=== PATIENT | female | born 1945 | race African-American/Black ===

== ENCOUNTER 2019-11-28 11:54 | Outpatient (CLI) | payer MEDICARE, OTHER, SELFPAY ==
[2019-11-28 12:27] LABS: Alanine Aminotransferase 25 U/L (4-35); Albumin Level 4.3 g/dL (3.5-5.1); Alkaline Phosphatase 82 U/L (38-126); Anion Gap 7 mmol/L (8-16); Aspartate Amino Transferase 39 U/L (14-36); Bilirubin,Total 0.7 mg/dL (0.2-1.3); Blood Urea Nitrogen 17 mg/dL (7-17); Calcium 9.6 mg/dL (8.4-10.2); Carbon Dioxide 32 mmol/L (22-30); Chloride 97 mmol/L (98-107); Cholesterol 209 mg/dL (0-200); Estimated Glomerular Filt Rate > 60; Glucose 91 mg/dL (65-105); HDL Direct 76 mg/dL; Potassium 3.1 mmol/L (3.4-5.0); Sodium 136 mmol/L (137-145); Triglycerides 96 mg/dL (<150)
[2019-11-28 12:38] LABS: LDL Cholesterol Direct 97 mg/dL
[2019-11-28 12:52] LABS: Basophils Absolute Auto 0.1 K/mm3 (0.0-0.1); Basophils Percent Auto 1.2 % (0.2-1.2); Eosinophils Absolute Auto 0.4 K/mm3 (0-0.3); Eosinophils Percent Auto 8.4 % (0-4.4); Hematocrit 37.1 % (37.0-47.0); Hemoglobin 12.7 g/dL (12.0-15.0); Immature Granulocyte Absolute 0.01 K/mm3 (0.00-0.031); Immature Granulocyte Percent A 0.2 % (0-0.5); Lymphocytes Absolute Auto 1.83 K/mm3 (0.9-3.2); Lymphocytes Percent Auto 43.8 % (18.3-44.2); Mean Corpuscular HGB Conc 34.2 g/dl (32-36); Mean Corpuscular Hemoglobin 32.2 pg (26-34); Mean Corpuscular Volume 93.9 fl (80-100); Mean Platelet Volume 10.2 fl (7.4-10.4); Monocytes Absolute Auto 0.5 K/mm3 (0.1-0.6); Monocytes Percent Auto 11.2 % (2.6-8.5); Neutrophils Absolute Auto 1.5 K/mm3 (1.3-6.7); Neutrophils Percent Auto 35.2 % (45.5-73.1); Platelet Count Result 222 k/mm3 (150-375); Red Blood Count 3.95 M/mm3 (4.2-5.4); Red Cell Distribution Width 11.9 % (11.5-14.5); White Blood Count 4.2 K/mm3 (4.5-10.0)
[2019-12-01 12:38] LABS: Vitamin D 1,25 (OH)2 Total 53 pg/mL (18-72); Vitamin D2 1,25 (OH)2 <8 pg/mL; Vitamin D3 1,25 (OH)2 53 pg/mL
== END 2019-11-28 11:55 | disposition home or self-care (01) ==
PROVIDERS: PCP Family Medicine; Visit Provider Family Medicine
DX: E78.2 Mixed hyperlipidemia (principal); E55.9 Vitamin D deficiency, unspecified; I10 Essential (primary) hypertension
CPT/HCPCS: 36415; 80053; 80061; 82652; 85025

== ENCOUNTER 2020-01-01 02:12 | Outpatient (CLI) | payer MEDICARE, OTHER, SELFPAY ==
[2020-01-01 16:34] LABS: SARS-CoV-2 RNA PCR Negative
== END 2020-01-01 02:13 | disposition home or self-care (01) ==
LOC: ANHCOVIDDT 02:12
PROVIDERS: PCP Family Medicine; Visit Provider Internal Medicine Gastroenterology
DX: Z01.812 Encounter for preprocedural laboratory examination (principal); Z20.828 Contact with and (suspected) exposure to other viral communicable diseases
CPT/HCPCS: 87635; C9803; U0003

== ENCOUNTER 2020-01-03 00:13 | Day surgery (SDC) | payer MEDICARE, OTHER, SELFPAY ==
[2019-12-26 09:22] VITALS: BMI 21.1
[2020-01-03 06:40] VITALS: BP 157/92; PULSE 70; RESP 16; TEMP 36.2; O2SAT 99
[2020-01-03] MEDS: LACTATED RINGERS 1,000 ML 150 ML IV CONT (06:53)
--- NOTE | 2020-01-03 07:07 | WPDANESEPPF ---
Anes - Initial Pre Proc Eval Procedure: Operation Date: 01/03/20 07:30 Proposed Procedures p Esophagogastroduodenoscopy & Colonoscopy - Tyrone Coburn MD Date/Time: 01/03/20 07:07 Surgeon: Tyrone Coburn MD Pre Op Diagnosis: Change In Bowel Habits/ GERD Patient Data Age: 74 Gender: F Height: 5 ft 9 in Weight: 65 kg Last Vital Signs Temp 97.1 F L 01/03/20 06:40 Pulse 70 01/03/20 06:40 Resp 16 01/03/20 06:40 BP 157/92 H 01/03/20 06:40 Pulse Ox 99 01/03/20 06:40 Allergies Allergy/AdvReac Type Severity Reaction Status Date / Time codeine Allergy Unknown Nausea Verified 01/03/20 06:36 Home Medications Medication Instructions Recorded Confirmed Type clobetasol 0.05 % topical cream 1 applic TOPICAL DAILY 07/20/19 01/03/20 History tizanidine 2 mg tablet 2 mg PO TID PRN #90 tablet 07/31/19 01/03/20 Rx amlodipine 10 mg tablet 10 mg PO DAILY #90 tablet 11/07/19 01/03/20 Rx benazepril 10 mg tablet 10 mg PO DAILY #90 tablet 11/07/19 01/03/20 Rx cetirizine 10 mg tablet 10 mg PO DAILY #90 tablet 11/07/19 01/03/20 Rx chlorthalidone 25 mg tablet 25 mg PO DAILY #90 tablet 11/07/19 01/03/20 Rx naproxen 250 mg tablet 250 mg PO BID PRN #60 tablet 11/07/19 01/03/20 Rx omeprazole 40 mg capsule,delayed 40 mg PO DAILY #90 cap 11/07/19 01/03/20 Rx release potassium chloride 20 mEq 20 meq PO DAILY #30 tablet 12/02/19 01/03/20 Rx tablet,extended release Patient hx anesthesia problems: none Family hx anesthesia problems: none PMFSH Past Medical History Medical History (Updated 11/11/19 @ 23:33 by Devika Dominguez MD) Benign essential HTN GERD (gastroesophageal reflux disease) H/O: HTN (hypertension) Surgical History Surgical History Surgical history unknown Social History Social History (Updated 11/07/19 @ 09:28 by Keeley Jimenez) Smoking status: Never smoker Alcohol intake: never Substance use: never Living arrangements: with family Gender identity (if verbalized by the patient): Female Anes - Eval Final PreProcedure Day of Procedure 01/03/20 07:07 Patient weight: normal Heart: regular rate and rhythm Lungs: clear to auscultation Airway: Mallampati scale class II Neurological: alert and oriented Last oral intake: >/= 8 hours ASA classification: II Emergent: no Anesthetic plan: proceed Anesthesia type and monitoring: general GIVS and standard monitoring Informed Consent: The patient's anesthetic plan and its attendant risks and benefits were discussed with the patient/family/POA. Questions were solicited and answers provided to the satisfaction of the patient/family/POA.
[2020-01-03 07:20] VITALS: BMI 23.5
--- NOTE | 2020-01-03 07:32 | PM.HPGS ---
History of Present Illness History of Present Illness Consent: Risks, benefits, and alternatives have been discussed and questions answered. Patient agrees to proceed with procedure. Chief complaint: Change In Bowel Habits/ GERD Narrative: Summer Jennings is a 74 year old female With dyspepsia who recently has had dysphagia. She in fact came to the emergency room when food was caught a few months ago. She chews her food very well now to avoid problems. She has also had a change in bowel habits. She is requiring stool softeners such as MiraLax a couple times a week. She has a family history of colon cancer in her mother [facility] Past Medical History Medical History Benign essential HTN GERD (gastroesophageal reflux disease) H/O: HTN (hypertension) Surgical History Surgical History Surgical history unknown Family History Family History Mother Carcinoma of colon Father Malignant neoplasm of prostate, Onset Age: 70 Social History Social History Smoking status: Never smoker Alcohol intake: never Substance use: never Living arrangements: with family Gender identity (if verbalized by the patient): Female Meds Home Medications and Allergies Home Medications Medication Instructions Recorded Confirmed Type clobetasol 0.05 % topical cream 1 applic TOPICAL DAILY 07/20/19 01/03/20 History tizanidine 2 mg tablet 2 mg PO TID PRN #90 tablet 07/31/19 01/03/20 Rx amlodipine 10 mg tablet 10 mg PO DAILY #90 tablet 11/07/19 01/03/20 Rx benazepril 10 mg tablet 10 mg PO DAILY #90 tablet 11/07/19 01/03/20 Rx cetirizine 10 mg tablet 10 mg PO DAILY #90 tablet 11/07/19 01/03/20 Rx chlorthalidone 25 mg tablet 25 mg PO DAILY #90 tablet 11/07/19 01/03/20 Rx naproxen 250 mg tablet 250 mg PO BID PRN #60 tablet 11/07/19 01/03/20 Rx omeprazole 40 mg capsule,delayed 40 mg PO DAILY #90 cap 11/07/19 01/03/20 Rx release potassium chloride 20 mEq 20 meq PO DAILY #30 tablet 12/02/19 01/03/20 Rx tablet,extended release Allergies Allergy/AdvReac Type Severity Reaction Status Date / Time codeine Allergy Unknown Nausea Verified 01/03/20 06:36 Vital Signs Vital Signs - 24 hr 01/03/20 06:40 Temperature 36.2 C L Pulse Rate 70 Respiratory Rate 16 Blood Pressure 157/92 H Pulse Oximetry 99 Exam Const: General: alert Orientation/consciousness: patient oriented x3 Resp: Auscultation: clear to auscultation bilaterally Cardio: Rhythm: regular rhythm GI: GI Palp: Yes Soft to palpation and No Tenderness to palpation present (GI) Neuro: General: patient oriented x3 Assessment and Plan Assessment and plan (1) Dysphagia: Code(s): R13.10 - Dysphagia, unspecified Status: Acute Assessment and Plan: EGD with possible biopsy or dilatation or cautery. (2) Family history of colon cancer: Code(s): Z80.0 - Family history of malignant neoplasm of digestive organs Status: Acute Assessment and Plan: Colonoscopy with possible biopsy or polypectomy or cautery or injection of substances.
[2020-01-03 08:02] VITALS: BP 108/64; PULSE 66; RESP 20; O2SAT 100
[2020-01-03 08:12] VITALS: BP 123/72; PULSE 70; RESP 20; O2SAT 100
[2020-01-03 08:22] VITALS: BP 126/71; PULSE 66; RESP 20; O2SAT 100
== END 2020-01-03 09:00 | disposition home or self-care (01) ==
PROVIDERS: PCP Family Medicine; Visit Provider Internal Medicine Gastroenterology
PROC: 0DJ08ZZ Inspection of Upper Intestinal Tract, Via Natural or Artificial Opening Endoscopic (ICD-10-PCS; CPT 43235; principal; 2020-01-03 07:30)
DX: K22.2 Esophageal obstruction (principal); Z12.11 Encounter for screening for malignant neoplasm of colon; K57.30 Diverticulosis of large intestine without perforation or abscess without bleeding; K63.89 Other specified diseases of intestine; K21.9 Gastro-esophageal reflux disease without esophagitis; I10 Essential (primary) hypertension; Z80.0 Family history of malignant neoplasm of digestive organs
CPT/HCPCS: 43249; G0105; C1726; J2001; J2704; J7120

== ENCOUNTER 2020-02-06 10:36 | Outpatient (CLI) | payer MEDICARE, OTHER, SELFPAY ==
[2020-02-06 11:24] LABS: Anion Gap 5 mmol/L (8-16); Blood Urea Nitrogen 18 mg/dL (7-17); Calcium 9.6 mg/dL (8.4-10.2); Carbon Dioxide 34 mmol/L (22-30); Chloride 102 mmol/L (98-107); Estimated Glomerular Filt Rate > 60; Glucose 90 mg/dL (65-105); Potassium 3.6 mmol/L (3.4-5.0); Sodium 141 mmol/L (137-145)
== END 2020-02-06 10:37 | disposition home or self-care (01) ==
PROVIDERS: PCP Family Medicine; Visit Provider Physician Assistant
DX: E87.6 Hypokalemia (principal); I10 Essential (primary) hypertension
CPT/HCPCS: 36415; 80048

== ENCOUNTER 2020-04-24 12:59 | Outpatient (CLI) | payer MEDICARE, OTHER, SELFPAY ==
--- NOTE | ~2020-04-24 | MM_ITS ---
EXAMINATION: MM screening rizwan BI w diana HISTORY: Screening TECHNIQUE: Craniocaudal and mediolateral oblique 3-D tomosynthesis images were obtained and synthetic 2-D images were generated. CAD analysis was submitted and interpreted. COMPARISON: 12/28/2018 BREAST PARENCHYMAL COMPOSITION: The breasts are heterogenously dense, which may obscure small masses. FINDINGS: There is no evidence of suspicious mass, calcification, or architectural distortion to sugg est malignancy in either breast. There has been no suspicious interval change. IMPRESSION: 1. No mammographic evidence of malignancy. 2. Recommend routine screening mammography in one year. BI-RADS Category 1: Negative Reviewed, dictated and finalized at location D. ING LINE PAINTER
== END 2020-04-24 13:00 | disposition home or self-care (01) ==
LOC: ANHIMG 13:03
PROVIDERS: PCP Family Medicine; Visit Provider Physician Assistant
DX: Z12.31 Encounter for screening mammogram for malignant neoplasm of breast (principal)
CPT/HCPCS: 77063; 77067

== ENCOUNTER 2020-08-14 09:15 | Outpatient (CLI) | payer MEDICARE, SELFPAY ==
[2020-08-14 09:52] LABS: Basophils Percent Auto 1.3 % (0.2-1.2); Eosinophils Absolute Auto 0.4 K/mm3 (0-0.3); Eosinophils Percent Auto 11.8 % (0-4.4); Hemoglobin 13.6 g/dL (12.0-15.0); Immature Granulocyte Absolute 0.01 K/mm3 (0.00-0.031); Immature Granulocyte Percent A 0.3 % (0-0.5); Lymphocytes Absolute Auto 1.27 K/mm3 (0.9-3.2); Lymphocytes Percent Auto 41.5 % (18.3-44.2); Mean Corpuscular HGB Conc 33.2 g/dl (32-36); Mean Corpuscular Hemoglobin 31.9 pg (26-34); Mean Platelet Volume 9.9 fl (7.4-10.4); Monocytes Absolute Auto 0.3 K/mm3 (0.1-0.6); Monocytes Percent Auto 10.5 % (2.6-8.5); Neutrophils Absolute Auto 1.1 K/mm3 (1.3-6.7); Neutrophils Percent Auto 34.6 % (45.5-73.1); Platelet Count Result 214 k/mm3 (150-375); Red Blood Count 4.27 M/mm3 (4.2-5.4); Red Cell Distribution Width 11.9 % (11.5-14.5); White Blood Count 3.1 K/mm3 (4.5-10.0)
[2020-08-14 10:04] LABS: Alanine Aminotransferase 21 U/L (4-35); Albumin Level 4.5 g/dL (3.5-5.1); Alkaline Phosphatase 79 U/L (38-126); Anion Gap 1 mmol/L (8-16); Aspartate Amino Transferase 44 U/L (14-36); Bilirubin,Total 0.8 mg/dL (0.2-1.3); Blood Urea Nitrogen 14 mg/dL (7-17); Calcium 10.4 mg/dL (8.4-10.2); Carbon Dioxide 37 mmol/L (22-30); Chloride 101 mmol/L (98-107); Cholesterol 207 mg/dL (0-200); Estimated Glomerular Filt Rate > 60; Glucose 95 mg/dL (65-105); HDL Direct 82 mg/dL; Potassium 3.6 mmol/L (3.4-5.0); Sodium 139 mmol/L (137-145); Triglycerides 69 mg/dL (<150)
[2020-08-14 10:15] LABS: LDL Cholesterol Direct 90 mg/dL
[2020-08-14 10:33] LABS: Thyroid Stimulating Hormone 0.694 uIU/mL (0.465-4.680)
[2020-08-18 12:05] LABS: Vitamin D 1,25 (OH)2 Total 53 pg/mL (18-72); Vitamin D2 1,25 (OH)2 <8 pg/mL; Vitamin D3 1,25 (OH)2 53 pg/mL
== END 2020-08-14 09:16 | disposition home or self-care (01) ==
PROVIDERS: PCP Family Medicine; Visit Provider Family Medicine
DX: E55.9 Vitamin D deficiency, unspecified (principal); E78.2 Mixed hyperlipidemia; E03.9 Hypothyroidism, unspecified; I10 Essential (primary) hypertension
CPT/HCPCS: 36415; 80053; 80061; 82652; 84443; 85025

== ENCOUNTER 2021-02-18 15:14 | Outpatient (CLI) | payer MEDICARE, SELFPAY ==
[2021-02-18 15:49] LABS: Alanine Aminotransferase 22 U/L (4-35); Albumin Level 4.4 g/dL (3.5-5.1); Alkaline Phosphatase 86 U/L (38-126); Anion Gap 7 mmol/L (8-16); Aspartate Amino Transferase 34 U/L (14-36); Bilirubin,Total 0.7 mg/dL (0.2-1.3); Blood Urea Nitrogen 15 mg/dL (7-17); Calcium 9.8 mg/dL (8.4-10.2); Carbon Dioxide 29 mmol/L (22-30); Chloride 103 mmol/L (98-107); Estimated Glomerular Filt Rate > 60; Glucose 119 mg/dL (65-110); Potassium 3.6 mmol/L (3.4-5.0); Sodium 139 mmol/L (137-145)
== END 2021-02-18 15:15 | disposition home or self-care (01) ==
PROVIDERS: PCP Family Medicine; Visit Provider Family Medicine
DX: I10 Essential (primary) hypertension (principal); E83.52 Hypercalcemia
CPT/HCPCS: 36415; 80053; 83519

== ENCOUNTER 2021-05-20 16:15 | Outpatient (CLI) | payer MEDICARE, SELFPAY ==
--- NOTE | ~2021-05-20 | MR_ITS ---
EXAMINATION: MR ankle LT wo con DATE: 05/20/2021 17:43 INDICATION: Left ankle pain. TECHNIQUE: Magnetic resonance imaging (MRI) of the left ankle was performed without intravenous contr ast. Sequences included sagittal PD-weighted FS FSE, sagittal PD-weighted FSE, coronal PD-weighted FS FSE, coronal PD-weighted FSE, axial PD-weighted FS FSE, and axial PD-weighted FSE. COMPARISON: Left foot radiographs 05/10/2021 FINDINGS: Medial ankle ligaments: The superficial and deep components of the deltoid ligament are normal. Lateral ankle ligaments: There are changes of prior sprain of anterior talofibular ligament characterized by increased signal intensity. Calcaneofibular ligament is normal. Posterior talofibular ligament is normal. There are ch anges of prior sprain of anterior tibiofibular ligament characterized by increased signal intensity. Posterior tibiofibular ligament is normal. Tendons: Achilles tendon is normal. The medial ankle tendons and anterior ankle tendons are normal. The perone al tendons are normal. Plantar fascia: Normal. Bones/other: Bone alignment is normal. There is subchondral edema-like marrow signal intensity in anterior tibial plafond, consistent with stress reaction. The talar dome is normal. There is a nondisplaced subchondr al fracture of anterior process of calcaneus with low signal fracture line and adjacent edema-like ma rrow signal intensity. There is edema-like marrow signal intensity involving the superior proximal as pect of cuboid and medial pole of navicular, consistent with stress reaction. There are areas of ivone a-like marrow signal intensity involving the medial navicular and bases of first-third metatarsals, c onsistent with stress reaction. The cartilage is well-maintained in the midfoot and hindfoot. Fluid: There is no joint effusion. IMPRESSION: 1. Subchondral fracture of anterior process of calcaneus. Reviewed, dictated and finalized at location A. AL WELFARE ADMINISTRATOR
== END 2021-05-20 16:16 | disposition home or self-care (01) ==
PROVIDERS: PCP Family Medicine; Visit Provider Orthopaedic Surgery
DX: S92.022A Displaced fracture of anterior process of left calcaneus, initial encounter for closed fracture (principal); M25.572 Pain in left ankle and joints of left foot
CPT/HCPCS: 73721

== ENCOUNTER 2021-10-06 08:16 | Outpatient (CLI) | payer MEDICARE, SELFPAY ==
--- NOTE | ~2021-10-06 | MM_ITS ---
EXAMINATION: MM screening rizwan BI w diana HISTORY: Screening TECHNIQUE: Craniocaudal and mediolateral oblique 3-D tomosynthesis images were obtained and synthetic 2-D images were generated. CAD analysis was submitted and interpreted. COMPARISON: Comparison to multiple prior studies sequentially, with oldest reviewed study dated 12/28. BREAST PARENCHYMAL COMPOSITION: The breasts are heterogeneously dense, which may obscure small masses . FINDINGS: There is no evidence of suspicious mass, calcification, or architectural distortion to sugg est malignancy in either breast. There has been no suspicious interval change. IMPRESSION: 1. No mammographic evidence of malignancy. 2. Recommend routine screening mammography in one year. BI-RADS Category 1: Negative Reviewed, dictated and finalized at location A.
== END 2021-10-06 08:17 | disposition home or self-care (01) ==
LOC: ANHIMG 08:19
PROVIDERS: PCP Family Medicine; Visit Provider Obstetrics & Gynecology
DX: Z12.31 Encounter for screening mammogram for malignant neoplasm of breast (principal)
CPT/HCPCS: 77063; 77067

== ENCOUNTER 2021-10-29 13:38 | Outpatient (CLI) | payer MEDICARE, SELFPAY ==
--- NOTE | ~2021-10-29 | MR_ITS ---
EXAMINATION: MR brain IAC wo con DATE: 10/29/2021 14:26 INDICATION: Confusion. TECHNIQUE: Magnetic resonance imaging (MRI) of the brain, brainstem, and internal auditory canals was performed without intravenous contrast. COMPARISON: Neck CT 04/14/2019 FINDINGS: There is no intracranial hemorrhage, acute infarction, or abnormal intracranial mass lesion . There are scattered areas of nonspecific increased T2-weighted signal intensity in the cerebral whi te matter. The ventricles are normal in size. The orbits are normal. The internal auditory canals and inner and middle ears are normal. The mastoid air cells are normal. There is mild mucosal thickening in the paranasal sinuses.. IMPRESSION: 1. Mild nonspecific cerebral white matter disease, which likely represents chronic small vessel ische anjelica disease. Reviewed, dictated and finalized at location A. IMPRESSION: 1. Mild nonspecific cerebral white matter disease, which likely represents geoscience professor horacio small vessel ischemic disease.
== END 2021-10-29 13:39 | disposition home or self-care (01) ==
PROVIDERS: PCP Family Medicine; Visit Provider Family Medicine
DX: R41.0 Disorientation, unspecified (principal); R90.82 White matter disease, unspecified
CPT/HCPCS: 70551

== ENCOUNTER 2022-10-20 09:30 | Outpatient (CLI) | payer MEDICARE, SELFPAY ==
[2022-10-20 10:20] LABS: Basophils Percent Auto 0.8 % (0.2-1.2); Eosinophils Absolute Auto 0.2 K/mm3 (0-0.3); Eosinophils Percent Auto 4.9 % (0-4.4); Hematocrit 41.4 % (37.0-47.0); Hemoglobin 13.5 g/dL (12.0-15.0); Lymphocytes Absolute Auto 1.12 K/mm3 (0.9-3.2); Lymphocytes Percent Auto 30.6 % (18.3-44.2); Mean Corpuscular HGB Conc 32.6 g/dl (32-36); Mean Corpuscular Volume 98.1 fl (80-100); Mean Platelet Volume 9.7 fl (7.4-10.4); Monocytes Absolute Auto 0.4 K/mm3 (0.1-0.6); Monocytes Percent Auto 10.4 % (2.6-8.5); Neutrophils Percent Auto 53.3 % (45.5-73.1); Platelet Count Result 178 k/mm3 (150-375); Red Blood Count 4.22 M/mm3 (4.2-5.4); Red Cell Distribution Width 11.9 % (11.5-14.5); White Blood Count 3.7 K/mm3 (4.5-10.0)
[2022-10-20 10:33] LABS: Alanine Aminotransferase 27 U/L (6-35); Albumin Level 4.4 g/dL (3.5-5.1); Alkaline Phosphatase 91 U/L (38-126); Anion Gap 1 mmol/L (8-16); Aspartate Amino Transferase 35 U/L (14-36); Bilirubin,Total 0.9 mg/dL (0.2-1.3); Blood Urea Nitrogen 12 mg/dL (7-17); Calcium 9.5 mg/dL (8.4-10.2); Carbon Dioxide 30 mmol/L (22-30); Chloride 105 mmol/L (98-107); Cholesterol 231 mg/dL (0-200); Estimated Glomerular Filt Rate > 60; Glucose 97 mg/dL (65-110); HDL Direct 85 mg/dL; Sodium 136 mmol/L (137-145); Triglycerides 95 mg/dL (<150)
[2022-10-20 10:44] LABS: LDL Cholesterol Direct 93 mg/dL
[2022-10-20 11:03] LABS: Thyroid Stimulating Hormone 0.339 uIU/mL (0.465-4.680)
== END 2022-10-20 09:31 | disposition home or self-care (01) ==
PROVIDERS: PCP Family Medicine; Visit Provider Family Medicine
DX: L50.9 Urticaria, unspecified (principal); Z13.29 Encounter for screening for other suspected endocrine disorder; Z13.220 Encounter for screening for lipoid disorders; G31.84 Mild cognitive impairment of uncertain or unknown etiology; I10 Essential (primary) hypertension
CPT/HCPCS: 36415; 80053; 80061; 84443; 85025

== ENCOUNTER 2022-10-27 10:08 | Outpatient (CLI) | payer MEDICARE, SELFPAY ==
--- NOTE | ~2022-10-27 | US_ITS ---
EXAMINATION: US thyroid DATE: 10/27/2022 11:00 INDICATION: Disorder of thyroid, unspecified. TECHNIQUE: Multiple ultrasound images of the thyroid were obtained. COMPARISON: None. FINDINGS: The right thyroid lobe measures 5.1 x 1.7 x 2.2 cm. The left thyroid lobe measures 4.9 x 1.4 x 2.0 c m. There are multiple subcentimeter nodules in the thyroid. For example, in the right thyroid lobe, there is a 7 mm solid, hypoechoic, wider than tall nodule with smooth margin without echogenic foci ( TI-RADS TR4). In the right thyroid lobe, there is a 9 mm mixed cystic and solid, isoechoic, wider jennifer n tall nodule with smooth margin without echogenic foci (TR2). The thyroid is diffusely hypervascular . IMPRESSION: 1. Small thyroid nodules, likely not clinically significant. No follow-up is needed. Reviewed, dictated and finalized at location A. IMPRESSION: 1. Small thyroid nodules, likely not clinically significant. No follow-up is ne eded.
== END 2022-10-27 10:09 | disposition home or self-care (01) ==
LOC: ANHIMG 10:10
PROVIDERS: PCP Family Medicine; Visit Provider Physician Assistant
DX: E04.1 Nontoxic single thyroid nodule (principal)
CPT/HCPCS: 76536

== ENCOUNTER 2022-11-13 14:55 | Outpatient (CLI) | payer MEDICARE, SELFPAY ==
--- NOTE | 2022-11-13 14:58 | ECHO_ITS ---
Patient Info Name: Summer Jennings Age: 76 years : 1945 Gender: Female Ht: 69 in Wt: 148 lbs BSA: 1.81 m2 HR: 66 bpm BP: 177 / 91 mmHg Heart Rhythm: Sinus Rhythm Technical Quality: Fair Exam Date: 11/13/2022 3:16 PM Exam Location: [facility] Patient Status: Outpatient Admit Date: 11/13/2022 Staff Ordering Physician: Devika Dominguez MD Tuber Machine Operator Helper: Celsa Desai RDCS Attending Provider: Devika Dominguez MD Referring Physician: Alberto MARADIAGA; Exam Type: CA echo doppler color flow Study Info Indications - cardiac murmur Complete two-dimensional, color flow and Doppler transthoracic echocardiogram is performed. Summary 1. Complete two-dimensional, color flow and Doppler transthoracic echocardiogram is performed. 2. Left ventricular chamber dimension is normal. 3. Left ventricular systolic function is normal, estimated at 60-65%. 4. The left ventricular diastolic function is grade I diastolic dysfunction. 5. E/e' 9 is minimally elevated. 6. Left atrial chamber dimension is mildly enlarged. 7. There is mild mitral valve regurgitation. 8. There is mild to moderate tricuspid valve regurgitation. 9. No pulmonary hypertension, estimated pulmonary arterial systolic pressure is 28 mmHg. Left Ventricle E/e' 9 is minimally elevated. Left ventricular chamber dimension is normal. Left ventricular systolic function is normal, estimated at 60-65%. The left ventricular diastolic function is grade I diastolic dysfunction. Right Ventricle Right ventricular chamber dimension is normal. Right ventricular systolic function is normal. Left Atria Left atrial chamber dimension is mildly enlarged. Right Atria Right atrial chamber dimension is normal. Aortic Valve The aortic valve is trileaflet. There is no aortic valve stenosis. There is no aortic valve regurgitation. Pulmonic Valve There is no pulmonic regurgitation. Mitral Valve There is no mitral valve stenosis. There is mild mitral valve regurgitation. Tricuspid Valve There is mild to moderate tricuspid valve regurgitation. No pulmonary hypertension, estimated pulmonary arterial systolic pressure is 28 mmHg. Pericardium/Pleural There is no pericardial effusion. Inferior Vena Cava Normal inferior vena cava with >50% collapse upon inspiration consistent with normal right atrial pressure, 5 mmHg. Aorta The aortic root size at the sinus of Valsalva is normal. Left Ventricular Outflow Tract Name Value Normal LVOT 2D LVOT Diameter 2.0 cm LVOT Doppler LVOT Peak Gradient 4 mmHg LVOT Mean Gradient 2 mmHg LVOT VTI 24 cm LVOT VTI/AV VTI Ratio 0.9 LVOT Stroke Volume 72 ml LVOT CO 13.5 l/min LVOT CI 7.5 l/min/m2 Pulmonic Valve Name Value Normal PV Doppler
== END 2022-11-13 14:56 | disposition home or self-care (01) ==
LOC: ANHCARD 14:56
PROVIDERS: PCP Family Medicine; Visit Provider Family Medicine
DX: I10 Essential (primary) hypertension (principal); R01.1 Cardiac murmur, unspecified; I08.1 Rheumatic disorders of both mitral and tricuspid valves
CPT/HCPCS: 93306

== ENCOUNTER 2022-12-09 11:53 | Outpatient (CLI) | payer MEDICARE, SELFPAY ==
--- NOTE | ~2022-12-09 | NM_ITS ---
EXAMINATION: NM thyroid scan w uptake DATE: 12/10/2022 13:25 INDICATION: Thyrotoxicosis COMPARISON: None. TECHNIQUE: 398 microcuries I-123 was administered orally in capsule form. Scintigraphic images of th e thyroid gland were obtained at 24 hours. Thyroid uptake was calculated by the technologist. FINDINGS: The thyroid uptake is 28.1% (normal 10-30%), with the right lobe measuring 15.1% uptake and the left 14.0%. There is no focal area of decreased or increased activity to suggest hypofunctioning or hyperf unctioning nodule. IMPRESSION: 1. Normal thyroid scintigraphy and 24-hour iodine uptake. Reviewed, dictated and finalized at location A.
== END 2022-12-09 11:54 | disposition home or self-care (01) ==
PROVIDERS: PCP Family Medicine; Visit Provider Family Medicine
DX: E05.90 Thyrotoxicosis, unspecified without thyrotoxic crisis or storm (principal); R63.4 Abnormal weight loss
CPT/HCPCS: 78014; A9516

== ENCOUNTER 2023-01-11 17:23 | Outpatient (CLI) | payer MEDICARE, SELFPAY ==
[2023-01-11 18:26] LABS: Thyroid Stimulating Hormone 0.805 uIU/mL (0.465-4.680)
[2023-01-11 18:49] LABS: Free T4 Free Thyroxine 0.98 ng/mL (0.78-2.19)
[2023-01-14 03:52] LABS: Thyroid Peroxidase Antibodies 9 IU/mL (<9)
[2023-01-14 05:25] LABS: Triiodothyronine T3 Free 3.1 pg/mL (2.3-4.2)
== END 2023-01-11 17:24 | disposition home or self-care (01) ==
PROVIDERS: PCP Family Medicine; Visit Provider Physician Assistant
DX: E07.9 Disorder of thyroid, unspecified (principal)
CPT/HCPCS: 36415; 84439; 84443; 84481; 86376

== ENCOUNTER 2023-03-29 11:23 | Outpatient (CLI) | payer MEDICARE, SELFPAY ==
[2023-03-29 12:36] LABS: Free T4 Free Thyroxine 1.26 ng/mL (0.78-2.19)
[2023-03-29 14:50] LABS: Thyroid Stimulating Hormone 0.435 uIU/mL (0.465-4.680); Total Triiodothyronine (T3) 0.96 NG/ML (0.97-1.69)
[2023-03-31 08:35] LABS: Thyroid Peroxidase Antibodies 7 IU/mL (<9)
[2023-04-01 13:50] LABS: Thyroid Stimulating Immunoglob 108 % baseline (<140)
== END 2023-03-29 11:24 | disposition home or self-care (01) ==
PROVIDERS: PCP Family Medicine; Visit Provider Family Medicine
DX: E83.52 Hypercalcemia (principal); E05.90 Thyrotoxicosis, unspecified without thyrotoxic crisis or storm; Z13.29 Encounter for screening for other suspected endocrine disorder
CPT/HCPCS: 36415; 84439; 84443; 84445; 84480; 86376

== ENCOUNTER 2023-06-04 08:53 | Outpatient (CLI) | payer MEDICARE, SELFPAY ==
--- NOTE | ~2023-06-04 | XR_ITS ---
Lumbosacral Spine: AP and lateral views Clinical History: Pain Findings: The normal lordotic curve is maintained. The vertebral bodies and posterior elements are i ntact. There is advanced degenerative disc narrowing at L5-S1. There is moderate to advanced facet ar thropathy from L4 through S1. The sacroiliac joints are normally outlined. Impression: Degenerative spondylosis of the lower lumbar spine, as detailed above. Reviewed, dictated and finalized at location M. OVEMENT LEAD Impression: Degenerative spondylosis of the lower lumbar spine, as detailed above.
--- NOTE | ~2023-06-04 | XR_ITS ---
EXAMINATION: XR sacrum coccyx min 2V INDICATION: Coccyx pain after fall TECHNIQUE: Three views of the sacrum and coccyx are obtained. COMPARISON: None available FINDINGS: There is a possible transverse fracture of the lower sacrum moderate lower lumbar spondylos is is noted. Calcified atherosclerosis is noted. IMPRESSION: 1. Possible transverse fracture of the lower sacrum. If there is high clinical suspicion for fracture , further evaluation with CT is recommended. Reviewed, dictated and finalized at location B. ITIONAL CHINESE HERBALIST IMPRESSION: 1. Possible transverse fracture of the lower sacrum. If there is high clinical suspicion for fracture, further evaluation with CT is recommended.
== END 2023-06-04 08:54 | disposition home or self-care (01) ==
LOC: ANHIMG 08:58
PROVIDERS: PCP Family Medicine; Visit Provider Physician Assistant
DX: M47.896 Other spondylosis, lumbar region (principal); W19.XXXA Unspecified fall, initial encounter
CPT/HCPCS: 72100; 72220

== ENCOUNTER 2023-06-09 08:42 | Outpatient (CLI) | payer MEDICARE, SELFPAY ==
--- NOTE | ~2023-06-09 | CT_ITS ---
EXAMINATION: CT pelvis wo con DATE: 06/09/2023 09:00 INDICATION: Unspecified fracture of sacrum, initial encounter. TECHNIQUE: Computed tomography (CT) of the pelvis was performed without intravenous contrast. Automat ed exposure control and iterative reconstruction technique were employed. The dose-length product was 185.19 mGy-cm. COMPARISON: Sacrum and coccyx radiographs 06/04/2023 FINDINGS: There is diverticulosis of the colon without evidence of diverticulitis. There are no patho logically enlarged lymph nodes. There is no free intraperitoneal fluid. There is levocurvature and se alejandra spondylosis of lumbar spine. No fracture. 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 Osteitis pubis is noted. IMPRESSION: 1. No fracture. Reviewed, dictated and finalized at location A. OMER OPERATIONS REPRESENTATIVE IMPRESSION: 1. No fracture.
== END 2023-06-09 08:43 | disposition home or self-care (01) ==
PROVIDERS: PCP Family Medicine; Visit Provider Physician Assistant
DX: S32.10XA Unspecified fracture of sacrum, initial encounter for closed fracture (principal); S39.92XA Unspecified injury of lower back, initial encounter; W19.XXXA Unspecified fall, initial encounter
CPT/HCPCS: 72192

== ENCOUNTER 2023-10-25 10:47 | Outpatient (CLI) | payer MEDICARE, SELFPAY ==
[2023-10-25 11:21] LABS: Basophils Percent Auto 1.1 % (0.2-1.2); Eosinophils Absolute Auto 0.1 K/mm3 (0-0.3); Eosinophils Percent Auto 2.3 % (0-4.4); Hematocrit 36.3 % (37.0-47.0); Immature Granulocyte Absolute 0.01 K/mm3 (0.00-0.031); Immature Granulocyte Percent A 0.3 % (0-0.5); Lymphocytes Absolute Auto 1.09 K/mm3 (0.9-3.2); Lymphocytes Percent Auto 30.7 % (18.3-44.2); Mean Corpuscular HGB Conc 33.1 g/dl (32-36); Mean Corpuscular Hemoglobin 32.6 pg (26-34); Mean Corpuscular Volume 98.6 fl (80-100); Mean Platelet Volume 9.5 fl (7.4-10.4); Monocytes Absolute Auto 0.5 K/mm3 (0.1-0.6); Monocytes Percent Auto 14.1 % (2.6-8.5); Neutrophils Absolute Auto 1.8 K/mm3 (1.3-6.7); Neutrophils Percent Auto 51.5 % (45.5-73.1); Platelet Count Result 199 k/mm3 (150-375); Red Blood Count 3.68 M/mm3 (4.2-5.4); Red Cell Distribution Width 12.1 % (11.5-14.5); White Blood Count 3.6 K/mm3 (4.5-10.0)
[2023-10-25 11:38] LABS: Alanine Aminotransferase 24 U/L (6-35); Albumin Level 4.5 g/dL (3.5-5.1); Alkaline Phosphatase 85 U/L (38-126); Anion Gap 9 mmol/L (4-12); Aspartate Amino Transferase 41 U/L (14-36); Blood Urea Nitrogen 18 mg/dL (7-17); Calcium 9.3 mg/dL (8.4-10.2); Carbon Dioxide 28 mmol/L (22-30); Chloride 103 mmol/L (98-107); Cholesterol 128 mg/dL (0-200); Estimated Glomerular Filt Rate > 60; Glucose 94 mg/dL (65-110); HDL Direct 62 mg/dL; Sodium 140 mmol/L (137-145); Triglycerides 38 mg/dL (<150)
[2023-10-25 11:48] LABS: LDL Cholesterol Direct 56 mg/dL
[2023-10-25 11:50] LABS: Erythrocyte Sedimentation Rate 64 mm/hr (0-20)
[2023-10-25 11:52] LABS: Free T4 Free Thyroxine 1.27 ng/mL (0.78-2.19)
[2023-10-25 12:06] LABS: Thyroid Stimulating Hormone 0.402 uIU/mL (0.465-4.680)
== END 2023-10-25 10:48 | disposition home or self-care (01) ==
LOC: ANHLAB 10:50
PROVIDERS: PCP Family Medicine; Visit Provider Family Medicine
DX: E05.90 Thyrotoxicosis, unspecified without thyrotoxic crisis or storm (principal); E03.9 Hypothyroidism, unspecified; F51.04 Psychophysiologic insomnia; S41.159A Open bite of unspecified upper arm, initial encounter; E78.2 Mixed hyperlipidemia; I10 Essential (primary) hypertension
CPT/HCPCS: 36415; 80053; 80061; 84439; 84443; 85025; 85652

== ENCOUNTER 2024-01-24 12:14 | Outpatient (CLI) | payer MEDICARE, SELFPAY ==
[2024-01-24 12:44] LABS: Add Urine Microscopic? YES; Appearance Urine Clear (Clear); Bacteria Urine None Seen /hpf; Bilirubin Urine Negative (Negative); Blood Urine Negative (Negative); Color Urine Yellow (Yellow); Glucose Urine UA Negative (Negative); Ketones Urine Negative (Negative); Leukocyte Esterase Ur Trace LEU/UL (Negative); Nitrate Urine Negative (Negative); Non Pathogenic Casts 0-2; Protein Urine Trace mg/dL (Negative); Specific Grav Ur 1.016 (1.001-1.035); Squamous Epithelial Cell Urine None Seen /hpf (Few); WBC Urine 0-5 /hpf (0-3); pH Urine 7.5 (5.0-9.0)
== END 2024-01-24 12:15 | disposition home or self-care (01) ==
PROVIDERS: PCP Family Medicine; Visit Provider Student in an Organized Health Care Education/Training Program
DX: R35.89 Other polyuria (principal)
CPT/HCPCS: 81001

== ENCOUNTER 2024-02-18 07:51 | Outpatient (CLI) | payer MEDICARE, SELFPAY ==
--- NOTE | ~2024-02-18 | DEXA_ITS ---
Bone Density Report Name: GARDENIA ROBERTSON Age: 78 Sex: Female Ethnicity: Black Date of : 1945 Indication: postmenopausal; screening for osteoporosis; Referring Provider: HOWARD HOGAN Study: Bone densitometry was performed. Exam Date: February 18, 2024 Accession number: [id number] Bone Density: Region BMD T-score Z-score Classification AP Spine(L1-L4) 0.877 -1.5 0.2 Osteopenia Femoral Neck (Left) 0.691 -1.4 -0.2 Osteopenia Total Hip (Left) 0.856 -0.7 0.2 Normal Femoral Neck (Right) 0.712 -1.2 -0.1 Osteopenia Total Hip (Right) 0.849 -0.8 0.2 Normal Total Hip Mean 0.852 -0.8 0.2 Normal World Health Organization criteria for BMD impression classify patients as: Normal (T-score at or above -1.0), Osteopenia (T-score between -1.0 and -2.5), or Osteoporosis (T-score at or below -2.5). 10-year Fracture Risk(1): Major Osteoporotic Fracture 4.6% Hip Fracture 0.9% Reported Risk Factors: [place] (Black), Neck BMD=0.691, BMI=21.7 (1) FRAX(R) Version 3.08. Fracture probability calculated for an untreated patient. Fracture probability may be lower if the patient has received treatment. Clinical Information Provided by Patient: Has used the following medications: Vitamin D, Calcium, Multi vit Has the following medical conditions: Thyroid Patient maximum height was 69 Menopause Age: 37 No regular weight bearing exercise Does not regularly consume dairy products Drinks caffeinated beverages Onset of menses at age 15 Number of children 2 Impression: The patient has low bone mass, based on the Total Spine T-score. The patient has an estimated ten-year risk of hip fracture of 0.9% and an estimated ten-year risk of major fracture of 4.6%, based on the WHO FRAX algorithm. Discussion: BONE DENSITY IS LOW AT ONE OR MORE SKELETAL SITES. This patient's lowest T-score is low at one or more skeletal sites. It meets the World Health Organization's (WHO) criteria for ?low bone mass? (T-score between -1.0 and -2.5). The patient's 10-year risk of fracture as calculated by FRAX is less than the threshold where pharmacological therapy is recommended by the National Osteoporosis Foundation (NOF). However, all treatment decisions require clinical judgment and consideration of individual patient factors, including patient preferences, comorbidities, previous drug use, risk factors not captured in the FRAX model (e.g., frailty, falls, vitamin D deficiency, increased bone turnover, interval significant decline in bone density) and possible under or overestimation of fracture risk by FRAX. The patient should follow a healthful lifestyle (good nutrition with adequate calcium and vitamin D, and appropriate weight-bearing exercise). Follow-Up: Consider repeating this study in 2 to 3 years to reassess this patient's status, or sooner if there is some new clinical indication. Reported by: YUNIER on 02/18/2024 8:33:00 AM. Reviewed, dictated and finalized at location ADoc GALLEGOS
--- NOTE | ~2024-02-18 | MM_ITS ---
EXAMINATION: MM screening rizwan BI w diana HISTORY: Screening TECHNIQUE: Craniocaudal and mediolateral oblique 3-D tomosynthesis images were obtained and synthetic 2-D images were generated. CAD analysis was submitted and interpreted. COMPARISON: Comparison to multiple prior studies sequentially, with oldest reviewed study dated 12/28. BREAST PARENCHYMAL COMPOSITION: Dense: The breasts are heterogeneously dense, which may obscure small masses FINDINGS: There is no evidence of suspicious mass, calcification, or architectural distortion to sugg est malignancy in either breast. There has been no suspicious interval change. IMPRESSION: 1. No mammographic evidence of malignancy. 2. Recommend routine screening mammography in one year. BI-RADS Category 1: Negative Reviewed, dictated and finalized at location B. ESSORI LEAD TEACHER
== END 2024-02-18 07:52 | disposition home or self-care (01) ==
LOC: ANHIMG 07:52
PROVIDERS: PCP Family Medicine; Visit Provider Family Medicine
DX: Z12.31 Encounter for screening mammogram for malignant neoplasm of breast (principal); M85.89 Other specified disorders of bone density and structure, multiple sites; Z78.0 Asymptomatic menopausal state
CPT/HCPCS: 77063; 77067; 77080